=== PATIENT | male | born 1950 | race Caucasian/White ===

== ENCOUNTER 2016-10-29 22:11 | Emergency (ER) | payer MEDICARE | END 2016-10-30 04:10 | disposition home or self-care (01) | LOC: ER1 22:11 | DX: M79.672 Pain in left foot (principal); I10 Essential (primary) hypertension; Z79.899 Other long term (current) drug therapy | CPT/HCPCS: 73630; 99283 ==

== ENCOUNTER → 2016-11-01 | Outpatient (CLI) | payer MEDICARE | LOC: KOH-I 16:30 | DX: M79.672 Pain in left foot (principal); M65.872 Other synovitis and tenosynovitis, left ankle and foot | CPT/HCPCS: 73700 ==